=== PATIENT | male | born 1950 ===

== ENCOUNTER → 2018-12-14 | Outpatient (CLI) | payer OTHER ==
[~2018-12-14] MED LIST: ALBU2.5V8 INH; ASPI81TA50 PO; ATORVASTATIN CA80 MG PO; CARB15DR3 EACHEYE; CLOP75TA PO; DULA0.75 SQ; EMPA25TA PO; FERR325T14 PO; FLUT16SP NS; INSU100I17 SQ; LOSA-73 PO; MONT10TA9 PO; OLOD4MIS2 IH; PANT20TA2 PO; PRED50TA PO; PRED5DRO16 LEFTEYE; RIVA20TA2 PO; SOTA80TA48 PO; TRAM50TA PO
--- NOTE | 2018-12-15 06:33 | PAIN ---
DATE OF SERVICE: 12/14/2018 INITIAL CONSULTATION FOR PAIN CLINIC: CHIEF COMPLAINT: Bilateral knee and joint pain. HISTORY OF PRESENT ILLNESS: This is a 68-year-old male who presents with a history of pain about 30 years in the bilateral knees with multiple therapies over the years, physical therapies, multiple injections including steroid injections, Synvisc injections, RPR injections with stem cells, all with only minimal decrease and no long-term pain relief. The patient has been told that he needs total knee replacements, but he is not a good candidate for this because of his comorbidities. The patient reports knees are worse with walking, standing and any type of weightbearing. The patient is using a cane or walker, has a cane with him today, forced ambulation, but constantly painful, wakes him up from sleep, wakes 2-3 times a night and again affects his walking significantly. The patient has been taking tramadol, which does decrease the pain by about 25%, otherwise nothing really has helped over the years with anti-inflammatories, etc. The patient has been referred for evaluation and other modalities, which may be available for him. The patient describes the pain as constant, sharp, stabbing, throbbing, getting worse with weightbearing, standing, tries putting all his weight on one knee such as stepping up on a stair or a curb and radiates into the posterior calf to some extent as well. Right side is worse than the left with the pain, but both sides are significant. The patient rates his disability rate of 0-10, 10 being the worst, is 7 with family home responsibilities, 9 with recreation, is 8 with social activity, 10 with occupation and sexual behavior, 6 with self-care and life support activities. PAST MEDICAL HISTORY: Significant for hearing loss, cataracts, sinus congestion, diabetes, insulin-dependent, skin cancers, shortness of breath, sleep apnea, quit smoking many years ago, wears CPAP, history of hypertension, congestive heart failure, coronary artery disease, atrial fibrillation, gastroesophageal reflux, cirrhosis, arthritis, peripheral neuropathy. PREVIOUS SURGICAL HISTORY: Include coronary artery bypass graft in 2004, cataract extraction, right ankle reconstruction, appendectomy and knee surgery x 2. CURRENT MEDICATIONS: Include albuterol inhaler, carboxymethylcellulose, Plavix, dulaglutide injection, empagliflozin, insulin, losartan, montelukast, olodaterol inhaler, prednisone ophthalmic drops, sodium chloride drops, sotalol, albuterol inhaler, rivaroxaban, tramadol, pantoprazole, fluticasone and atorvastatin. ALLERGIES: The patient has no known drug allergies. FAMILY HISTORY: Significant for no major medical problems or conditions that he is aware of. SOCIAL HISTORY: The patient does not drink alcohol, quit smoking many years ago. Does not use any illegal, illicit or recreational drugs. He is , lives with his spouse, lives locally in [place], [place] and is currently retired. REVIEW OF SYSTEMS: The patient's review of systems is positive for those items mentioned in the history of present illness. All systems reviewed and otherwise negative. It is complete, full and well documented on the patient's chart. PHYSICAL EXAMINATION: VITAL SIGNS: The patient's blood pressure is 110/62, pulse 99, respirations 18, temperature is 98.1 degrees Fahrenheit, height 5 feet 8 inches, weight 281 pounds. GENERAL: The patient is awake, alert, oriented, appropriate, very pleasant demeanor. HEENT: Head shows normocephalic, atraumatic. Extraocular muscles are intact and symmetrical. Oral cavity: Mucous membranes moist and pink. Dentition is intact. NECK: Shows anterior throat supple without palpable lymphadenopathy noted. Swallow reflex is symmetrical. CHEST: Shows normal on inspection. Breath sounds clear to auscultation bilaterally. No rales, rhonchi or wheezes are noted. HEART: Shows S1, S2 clear. No murmurs are auscultated. ABDOMEN: Obese, soft, nontender, nondistended. No palpable organomegaly is noted. No rebound or guarding demonstrated. BACK: Shows spine grossly in the midline. Slight exaggeration of thoracic kyphosis, some minor flattening of lumbar lordotic curvature. Lumbar paraspinous muscle shows symmetrical on inspection, on palpation shows some moderate tenderness diffusely in the middle and lower distribution of the paraspinous muscles. The patient has good rotational motion of lumbar spine, both laterally greater than 10 degrees right and left as well as extension greater than 10 degrees, forward flexion 45 degrees without difficulty or pain reported. No tenderness over the spinous processes, sacrum, or sacroiliac regions. Extremities: The patient's lower extremities show deep tendon reflexes 1+ in the patellar and tendo-calcaneus tendons. Motor exam is 4 on a scale of 5, but equal with good dorsiflexion, extension, quadriceps and hamstring flexion. Peripheral pulses are 1+ posterior tibial. No peripheral edema is noted. Lower extremities are warm and dry to touch, equal in color and appearance. The patient's knee shows tenderness with palpation over the medial collateral ligament greater than the lateral, but tender bilaterally, right and left on the medial component. There is some wrenching positive, worse on the right than the left with passive knee motion of the range of motion bilaterally. The patient is able to stand, has difficulty standing from a seated position, uses a cane on his right hand to support his weight significantly and walks with significant antalgic gait, appears to favor the right lower extremity greater than the left and has a shuffling gait as well. SKIN: The patient's skin is warm and dry. Good turgor. No edema. No sores, rashes or bruising throughout. IMPRESSION: 1. This is a 68-year-old male with a long history of bilateral knee joint pain status post multiple modalities, therapies, injections, etc., without significant long-term improvement. 2. Obesity. 3. Hypertension. 4. Arthritis. 5. Diabetes. 6. Congestive heart failure. 7. Previous history of coronary artery disease. PLAN AND RECOMMENDATIONS: 1. Options were discussed with the patient. The patient with significant knee pain and degenerative arthritis to the point of indications for a total knee replacement. We will recommend second surgical opinion with Orthopedic Surgery outside [place] system. They may give him a better evaluation and options that he has been presented with so far. 2. We discussed genicular nerve block at the knees and potential radiofrequency ablation if these are accessible in the future. The patient would like to discuss this with his primary caregiver and decide afterwards as he is more interested in surgical opinion and total knee replacements. We will recommend that this be referred to an outside [facility] for a second opinion regarding his knees and follow up after that opinion is obtained. The patient understands and agrees and will follow up as scheduled. CATHY PIRES MD DR: RHYS/michael JOB#: [id number] / [id number] booker Jernigan NP, [facility]
== END | disposition home or self-care (01) ==
LOC: PNCL 09:23
PROVIDERS: ATTEND Anesthesiology
DX: M25.561 Pain in right knee (principal); M25.562 Pain in left knee; I11.0 Hypertensive heart disease with heart failure; I50.9 Heart failure, unspecified; E11.42 Type 2 diabetes mellitus with diabetic polyneuropathy; I25.10 Atherosclerotic heart disease of native coronary artery without angina pectoris; I48.91 Unspecified atrial fibrillation; K21.9 Gastro-esophageal reflux disease without esophagitis; M19.90 Unspecified osteoarthritis, unspecified site; E66.9 Obesity, unspecified; Z95.1 Presence of aortocoronary bypass graft; Z79.4 Long term (current) use of insulin; Z87.891 Personal history of nicotine dependence
CPT/HCPCS: G0463